=== PATIENT | female | born 1975 | race Caucasian/White ===

== ENCOUNTER 2018-05-11 21:56 | Emergency (ER) | payer MEDICAID ==
[~2018-05-11] VITALS: Ht 167.6 cm; Wt 80.0 kg
[~2018-05-11 21:56] MED LIST: CAPS42.55 TOP; CAPS60CR6 TP; CLIN300C53 PO; GUAI120015 PO; HYDR-569 PO; MUPI1OIN8 BOTHNARES
[2018-05-11 22:23] VITALS: BP 102/59
[2018-05-11 22:54] LABS: URINE HCG NEGATIVE (NEG)
[2018-05-11] MEDS ORDERED: BACDS PO (23:00)
== END 2018-05-11 23:15 ==
LOC: ER 21:56
DX: L02.415 Cutaneous abscess of right lower limb (principal); F15.90 Other stimulant use, unspecified, uncomplicated; F17.210 Nicotine dependence, cigarettes, uncomplicated; F11.90 Opioid use, unspecified, uncomplicated; Z60.2 Problems related to living alone; Z59.0 Homelessness; Z56.0 Unemployment, unspecified; Z79.2 Long term (current) use of antibiotics; Z79.899 Other long term (current) drug therapy
CPT/HCPCS: 81025; 87070; 87077; 87186; 99284